=== PATIENT | male | born 1985 | race Caucasian/White ===

== ENCOUNTER 2025-01-20 14:11 | Emergency (ER) | payer SELFPAY ==
[2025-01-20 14:15] VITALS: BP 117/83
[2025-01-20 15:52] VITALS: BP 123/87
[2025-01-20 15:53] VITALS: BMI 19.3
--- NOTE | 2025-01-20 16:23 | ED.GENMED ---
History of Present Illness
General
Chief Complaint: Withdrawal Symptoms
Source: patient and family
Time Seen by Provider: 01/20/25 16:08
History of Present Illness
History of Present Illness:
39-year-old male with past medical history of previous substance abuse, on Suboxone, presenting to the ER with family for evaluation with family stating that they are concerned for the patient's mental health. They note that the patient has been
dealing with significant traumas over the last year ( passing away at ) that they feel patient never dealt with this trauma properly and is currently spiraling. The patient's pbieob-me-vdd found notes at work saying that he was afraid
that his older son would be taken from him and that he was afraid to go back to senior care despite not doing anything that would cause him to be reincarcerated. Patient has been sober for 6 years, takes Suboxone daily but states he is not sure the dose
is currently working for him. He did not contact the provider who prescribes him the Suboxone prior to coming to the ER. Patient without any other physical concerns at this time. He is denying any SI, HI, auditory or visual hallucinations.
Significant family history with patient's mother having bipolar disorder and schizophrenia.
Past History
Past History
ED Past Medical History: None; Negative Asthma
ED Past Surgical History: None
Social History
Tobacco: Smoker
Alcohol: None
Drug: Former user
Personal: Single
Living: with family
Employment: Employed
Review of Systems
Review of Systems
All Other Systems: ROS reviewed and negative except as documented in HPI and ROS
Phy Exam
Physical Exam
Physical Exam:
GENERAL: Alert , in no apparent distress
EYE: conjunctiva clear
Head: Normocephalic atraumatic
NECK: Supple,
ENT: mmm.
LUNGS: no acute respiratory distress
NEUROLOGICAL: Alert and oriented
SKIN: Warm and dry, skin intact.
MUSCULOSKELETAL: well perfused.
PSYCH: Normal and appropriate interaction.
Scores
Heart Failure Risk
Heart Failure Risk Score: Not Applicable
Heart Score for Chest Pain Patients
STEMI patient?: Not applicable
Withdrawal Assessment of Alcohol
Withdrawal Assessment Completed?: Not applicable
Course
Orders/Labs/Results
Orders:
Orders
01/20/25 16:23
Crisis Consult Urgent
Reason for Consult: depression/anxiety
Vital Signs
Initial and Last Documented VS:
Initial Vital Signs
Temp Pulse Resp BP Pulse Ox
98.2 F 85 16 117/83 98
01/20/25 14:15 01/20/25 14:15 01/20/25 14:15 01/20/25 14:15 01/20/25 14:15
Last Documented Vital Signs
Temp Pulse Resp BP Pulse Ox
98.2 F 85 16 123/87 100
01/20/25 14:15 01/20/25 14:15 01/20/25 14:15 01/20/25 15:52 01/20/25 16:27
MDM/Problems Addressed
Differential Diagnosis Includes:
Medication side effect
adjustment disorder
Depression/anxiety
Patient and family states that he has been sober for 6 years so doubt substance abuse
MDM/Problems Addressed:
39-year-old male presenting to the ER with family who is currently requesting mental health help. Patient denying any SI/HI or auditory/visual hallucinations has had some significant traumas recently in his life that patient has had a hard time
coping with. Currently on Suboxone, questionably dealing with some side effects from this. He will contact his prescribing provider to discuss some of the symptoms. In the meantime we will order crisis consultation to help with outpatient
information, patient was possibly interested in inpatient care depending on the scenario.
*Pulse Oximetry
SaO2: 100
Oxygen Mode of Delivery: Room air
Patient hypoxic: no
*Critical Care Note
Total Time (30-74mins, 75-104mins- exclusive of procedures): Not Applicable
Patient Management
Escalation/DeEscalation of care consider admission/obs:
Patient seen by crisis staff. He will follow-up with [facility] as an outpatient. Both patient and family feel comfortable taking him home. Aware of return precautions to the ER.
ED Attending Note
-
Portions of this chart may have been created with voice recognition software.� Occasional wrong word or��sound alike� substitutions may have occurred due to the inherent limitations of voice recognition software.
Discharge Plan
Departure
Patient Disposition: Home (Routine Discharge)
Date of Disposition: 01/20/25
Time of Disposition: 18:06
Patient with high blood pressure during this ER visit?: No
Discharge Problem:
Adjustment disorder with emotional disturbance
Instructions: Anxiety, Adult (DC)
Prescriptions:
No Action
Citalopram
20 mg PO DAILY
SUBOXONE 8 MG-2 MG SL FILM
8 mg sublingual BID
amoxicillin 500 MG capsule
500 mg PO TID Qty: 42 0RF
Referrals:
UNKNOWN - PT DOES,NOT KNOW [Family Provider]
Interventions
Interventions:
*Risk Screen - Suicide Last Done: 01/20/25 14:15
*General Assessment Last Done: 01/20/25 15:54
*Neglect/Abuse Screening Last Done: 01/20/25 14:15
*ED- Fall Risk Assessment Last Done: 01/20/25 15:54
*ED COVID-19 Vaccine History Last Done: 01/20/25 15:54
ED- Neurological Assessment Last Done: 01/20/25 15:54
ED-Psychological Assessment Last Done: 01/20/25 15:54
Discharge Date and Time
Print Language: YI
== END 2025-01-20 18:30 | disposition home or self-care (01) ==
LOC: EMR 14:11
PROVIDERS: EMERGENCY PHYSICIAN Emergency Medicine
DX: F43.29 Adjustment disorder with other symptoms (principal); F41.9 Anxiety disorder, unspecified; F17.200 Nicotine dependence, unspecified, uncomplicated; Z79.899 Other long term (current) drug therapy
CPT/HCPCS: 99283

== ENCOUNTER 2025-01-21 16:59 | Emergency (ER) | payer SELFPAY ==
[2025-01-21 17:01] VITALS: BP 126/86
[2025-01-21 17:23] LABS: Hematocrit 42.3 % (39.0-52.0); Hemoglobin 15.0 g/dL (13.0-18.0); Mean Corp Hgb Conc. 35.5 g/dL (33.0-37.0); Mean Corpuscular Volume 91.6 fL (80.0-94.0); Nucleated Red Blood Cells % 0 % (-); Platelet Count 225 10^3/uL (130-400); Red Cell Dist. Width 12.4 % (11.5-14.5); Urine Character Clear (Clear)
[2025-01-21 17:30] LABS: Urine Red Blood Cell 0-2 /HPF (0-2); Urine Squamous Cell 0-2 /LPF (Few)
[2025-01-21 17:38] LABS: ALT (SGPT) 21 U/L (0-50); AST (SGOT) 22 U/L (17-59); Albumin 5.4 g/dl (3.5-5.0); Alkaline Phosphatase 50 U/L (38-126); Blood Urea Nitrogen 18 mg/dl (9-20); Calcium 10.3 mg/dl (8.4-10.2); Carbon Dioxide 27 mmol/L (22-30); Chloride 104 mmol/L (98-107); Glucose 101 mg/dl (70-99); Potassium 4.1 mmol/L (3.5-5.1); Sodium 140 mmol/L (135-145); Total Protein 8.5 g/dl (6.3-8.2); eGFR > 60.00
[2025-01-21 20:30] VITALS: BP 134/85
[2025-01-21 20:31] VITALS: BMI 19.5
--- NOTE | 2025-01-21 20:53 | ED.GENMED ---
History of Present Illness
General
Chief Complaint: Crisis Evaluation
Time Seen by Provider: 01/21/25 20:53
History of Present Illness
History of Present Illness:
FOCUSED PAST MEDICAL HISTORY
- Patient is a smoker
REVIEW OF OLD RECORDS
- I reviewed the crisis notes from yesterday; the patient apparently declined partial hospitalization program and was given referral to [facility].
Note:
CHIEF COMPLAINT(S)
Paranoia and delusional thoughts.
HISTORY OF PRESENT ILLNESS
The patient is a 39-year-old male with a history of substance abuse, who presented with paranoid and delusional thoughts, having overwhelming feelings that something bad will happen to his and son. He has been experiencing these symptoms
recently, and the crisis team was involved in his care the previous day. The patient contacted the crisis team today around 3:00 PM who advised returning to the emergency department. According to his [id number]-cb-fwm, who accompanied him, he has been
'spacing out a lot' and exhibiting behavior that is not typical for him. The patient reports feeling like his 'medicine was tampered with' and described being in a 'fight or flight' mode with paranoia. His rfaveq-cs-efs mentioned a significant
history of trauma in both the long and short term. The patient has agreed to inpatient care for further evaluation. There is also concern regarding his Suboxone treatment, as he suspected his prescription may not be correct. The patient has a
history of substance use and has been sober for 15 years after initially undergoing methadone treatment following legal troubles. He has been on Suboxone as part of a court agreement.
ADDITIONAL HISTORY OBTAINED FROM SOURCES OTHER THAN THE PATIENT
The patients jhnwke-xn-wne reports that his current behavior is atypical, describing the presence of paranoid delusions and confusion around his medication. She also mentions that there has been significant trauma both recently and historically.
CHRONIC MEDICAL CONDITIONS SIGNIFICANTLY AFFECTING CARE
History of substance abuse, currently managed with Suboxone.
SOCIAL DETERMINANTS AFFECTING HEALTH
The patient has a family history of substance use and legal issues which may have contributed to the development of his current mental health issues.
REVIEW OF SYSTEMS
- Neurological: Reports of paranoia, delusions, and dissociative episodes ('spacing out').
- Psychiatric: Paranoid and delusional thoughts, history of trauma, and fight or flight sensations.
PHYSICAL EXAM
General: Alert, no acute distress.
Skin: Warm, dry.
Head: Normocephalic, atraumatic.
Neck: Supple, trachea midline.
Eyes, Ears, Nose, Mouth, and Throat: Oral mucosa moist.
Cardiovascular: Normal peripheral perfusion, no edema.
Respiratory: Respirations are non-labored.
Gastrointestinal: Abdomen nondistended.
Back: Normal range of motion, normal alignment.
Musculoskeletal: Normal range of motion, normal strength.
Neurological: Alert and oriented to person, place, time, and situation, no focal neurological deficit observed.
Psychiatric: Cooperative; however, has somewhat of a bizarre affect at times and displays some mild paranoia
PROBLEM LIST
Acute Problems:
- Paranoia
- Delusional thoughts
Chronic Problems:
- History of substance abuse
PLAN
- Consult with the crisis team for further evaluation of mental health status and to discuss the possibility of inpatient psychiatric care.
- Review and confirm the accuracy of the patient�s Suboxone prescription.
- Consider psychiatric evaluation with telehealth services if in-person resources are limited.
- Address long-term trauma and stress management with appropriate referrals.
DIFFERENTIAL DIAGNOSIS
The Differential Diagnosis includes, in no particular order and is not limited to:
1. Substance-induced psychosis
2. Schizophrenia
3. Bipolar disorder with psychotic features
4. Delusional disorder
5. Post-traumatic stress disorder (PTSD)
6. Major depressive disorder with psychotic features
7. Schizoaffective disorder
8. Generalized anxiety disorder
9. Psychosocial stressors with psychological manifestations
10. Personality disorder
LABS
- Chemistries unremarkable, the patient has 2+ ketonuria but no sign of infection in the urine, UDS is positive for both marijuana and buprenorphine negative for fentanyl, negative for methadone, negative for oxycodone, negative for opiates, alcohol
detected
UPDATE
- At about 9:20 PM, I have asked crisis for reevaluation today.
SUMMARY OF ENCOUNTER
The patient, a 39-year-old male with a history of substance abuse, was seen in the emergency department due to paranoia and delusional thoughts. This was his second visit to the emergency department in two days. He was accompanied by his
vlralu-xj-yyf who expressed concerns about his atypical behavior. Although he does not pose an acute threat to himself, there is a significant concern over his mental health status. The crisis team was involved in his evaluation today. Due to
financial constraints, placing the patient in inpatient psychiatric care may be challenging as he does not have medical insurance. Discussions about utilizing [facility] for placement were conducted as this seems the most appropriate strategy
for his ongoing care.
MANAGEMENT OF THE PATIENTS CARE WAS DISCUSSED WITH
The crisis team was engaged for evaluation and discussed possible placement using [facility].
PLAN
The plan includes consulting with the crisis team to evaluate the feasibility of inpatient psychiatric care under [facility] due to the lack of medical insurance. A review of the Suboxone prescription is warranted to ensure accuracy and address
any potential confusion related to medications.
MEDICAL DECISION MAKING
-Complexity of Data Reviewed: Chronic conditions affecting care include a history of substance abuse managed with Suboxone. Differential Diagnosis includes: Substance-induced psychosis, schizophrenia, bipolar disorder with psychotic features,
delusional disorder, post-traumatic stress disorder (PTSD), major depressive disorder with psychotic features, schizoaffective disorder, generalized anxiety disorder, psychosocial stressors with psychological manifestations, and personality disorder.
-Data:
Category 1
Non-emergency department records reviewed: Information from prior external records and evaluations by the crisis team concerning patients behavior and substance use history was considered.
Clinical information was obtained from an independent historian: Input was obtained from the patient�s [id number] regarding his atypical behavior and medication confusion.
Category 3
Discussion of management with the crisis team regarding placement and potential inpatient care with financial assistance from county funding.
-Risk:
Care significantly affected by Social Determinants of Health: The patient does not have medical insurance, which impedes timely placement in a psychiatric care facility. The crisis teams involvement highlights the importance of finding alternative
funding options like [facility] for his care.
DIAGNOSIS
Paranoia and delusional disorder, F22
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
History of trauma, Z91.49
Past History
Past History
ED Past Medical History: None; Negative Asthma
ED Past Surgical History: None
Social History
Tobacco: Smoker
Alcohol: None
Drug: Former user
Personal: Single
Living: with family
Employment: Employed
Phy Exam
Physical Exam
Physical Exam:
See HPI
Course
Orders/Labs/Results
Orders:
Orders
01/21/25 17:14
Alcohol Urgent
Complete Blood Count/With Diff Urgent
Comprehensive Metabolic Panel Urgent
Fentanyl, Urine Urgent
Urinalysis Reflex To Culture Urgent
Date Specimen was Collected: 01/21/25
Time Specimen was Collected: 17:05
Urine Drug Abuse Screen Urgent
Date Specimen was Collected: 01/21/25
Time Specimen was Collected: 17:05
Urine Microscopic Reflex Cult Urgent
Urine Culture Urgent
ADIEL Source: U
Specimen Description:
Date Specimen was Collected: 01/21/25
Time Specimen was Collected: 17:05
01/21/25 23:00
Buprenorphine [Subutex] 8 mg SL BID
01/22/25 00:18
Crisis Consult Urgent
Reason for Consult: Crisis
Abnormal Lab Results
01/21/25
17:14
RBC 4.62 L 10^6/uL
(4.70-6.10)
MCH 32.5 H pg
(27.0-31.0)
Absolute Neuts (auto) 7.4 H 10^3/uL
(1.4-6.5)
Absolute Monos (auto) 0.8 H 10^3/uL
(0.1-0.6)
Lymphocytes % 16.0 L %
(20.5-51.1)
Glucose 101 H mg/dl
(70-99)
Calcium 10.3 H mg/dl
(8.4-10.2)
Total Protein 8.5 H g/dl
(6.3-8.2)
Albumin 5.4 H g/dl
(3.5-5.0)
Urine Ketones 2+ A
(Negative)
Urine Urobilinogen 2+ A
(Neg - 1+)
Leukocyte Esterase Rfl 1+ A
(Negative)
Urine Bacteria (Reflex) Few A
(Negative)
Urine Albumin (Reflex) 2+ A
(Neg - Trace)
Ur Buprenorphine Positive H
(Negative)
U Marijuana (THC) Screen Positive H
(Negative)
01/21/25 17:14
01/21/25 17:14
Vital Signs
Initial and Last Documented VS:
Initial Vital Signs
Temp Pulse Resp BP Pulse Ox
36.7 C 77 18 126/86 99
01/21/25 17:01 01/21/25 17:01 01/21/25 17:01 01/21/25 17:01 01/21/25 17:01
Last Documented Vital Signs
Temp Pulse Resp BP Pulse Ox
36.7 C 77 18 132/69 96
01/21/25 17:01 01/21/25 17:01 01/21/25 17:01 01/22/25 03:00 01/22/25 02:22
*Pulse Oximetry
SaO2: 100
Oxygen Mode of Delivery: Room air
Patient hypoxic: no
*Critical Care Note
Total Time (30-74mins, 75-104mins- exclusive of procedures): Not Applicable
ED Attending Note
-
Portions of this chart may have been created with voice recognition software.� Occasional wrong word or��sound alike� substitutions may have occurred due to the inherent limitations of voice recognition software.
Discharge Plan
Departure
Patient Disposition: Psych Facility
Date of Disposition: 01/21/25
Time of Disposition: 22:53
Discharge Problem:
Paranoia
Prescriptions:
No Action
Citalopram
20 mg PO DAILY
SUBOXONE 8 MG-2 MG SL FILM
8 mg sublingual BID
amoxicillin 500 MG capsule
500 mg PO TID Qty: 42 0RF
Referrals:
UNKNOWN,NO INTERVIEW [Family Provider]
Interventions
Interventions:
*Risk Screen - Suicide Last Done: 01/21/25 20:38
*General Assessment Last Done: 01/21/25 17:01
*Neglect/Abuse Screening Last Done: 01/21/25 20:38
*ED- Fall Risk Assessment Last Done: 01/21/25 20:31
*ED COVID-19 Vaccine History Last Done: 01/21/25 20:31
*Nursing Disposition Last Done: 01/22/25 03:42
ED-Psychological Assessment Last Done: 01/21/25 20:31
Discharge Date and Time
Discharge Date/Time: 01/22/25 03:42
Print Language: IRISH
[2025-01-21 21:00] VITALS: BP 133/78
[2025-01-21 22:00] VITALS: BP 113/71
[2025-01-22 02:00] VITALS: BP 105/53
[2025-01-22 03:00] VITALS: BP 132/69
== END 2025-01-22 03:42 ==
LOC: EMR 16:59
PROVIDERS: Emergency Medicine; EMERGENCY PHYSICIAN Emergency Medicine
DX: F22 Delusional disorders (principal); F19.959 Other psychoactive substance use, unspecified with psychoactive substance-induced psychotic disorder, unspecified; F17.200 Nicotine dependence, unspecified, uncomplicated
CPT/HCPCS: 99285; 80053; 80306; 80307; 81003; 81015; 82077; 85025; 87086